=== PATIENT | male | born 1960 | race American Indian/Alaskan Native ===

== ENCOUNTER 2017-04-26 10:20 | Inpatient (IN) | payer BC, MEDICARE ==
[2017-04-26 10:54] LABS: Basophils % (Auto) 1.5 % (0.0-1.8); Hematocrit 43.6 % (35.5-45.6); Hemoglobin 14.5 gm/dl (11.8-15.2); Mean Corpuscular HGB Conc 33 % (32-34); Mean Corpuscular Hemoglobin 29 pg (28-32); Mean Corpuscular Volume 88 fl (84-94); Platelet Count 267 K/mm3 (140-440); Red Blood Count 4.98 M/mm3 (3.65-5.03); Red Cell Distribution Width 14.2 % (13.2-15.2); White Blood Count 5.5 K/mm3 (4.5-11.0)
--- NOTE | 2017-04-26 10:55 | Emergency Department Report ---
Chief Complaint: Chest Pain Stated Complaint: CHEST PAIN - HPI History of Present Illness: pt is a 56 y/o aam with hx of DMII, HTN, CAD, who presents for substernal cp with nv x 2 days intermittent worsening last night, pain leve 4/10 sharp radiating to mid back. there is no sob no dizziness last n/v 1 hr ago, cp 1/10 at this time burning sensation - Exam Vital Signs: Vital Signs 04/26/17 10:30 Temperature 98.8 F Pulse Rate 91 H Respiratory 16 Rate Blood Pressure 139/83 O2 Sat by Pulse 99 Oximetry MSE screening note: Focused history and physical exam performed. Due to findings the following was ordered: ED Disposition for MSE Condition: Stable
[2017-04-26 11:10] LABS: Anion Gap 19 mmol/L; BUN/Creatinine Ratio 18; Blood Urea Nitrogen 9 mg/dL (9-20); Calcium 9.1 mg/dL (8.4-10.2); Carbon Dioxide 23 mmol/L (22-30); Glucose 129 mg/dL (75-100); Potassium 3.9 mmol/L (3.6-5.0); Sodium 138 mmol/L (137-145)
--- NOTE | 2017-04-26 12:34 | Emergency Department Report ---
ED General Adult HPI - General Chief complaint: Chest Pain Stated complaint: CHEST PAIN Time Seen by Provider: 04/26/17 12:28 Source: patient Mode of arrival: Ambulatory Limitations: No Limitations - History of Present Illness Initial comments: Patient is a 56-year-old male past medical history of hypertension who presents with chest pain that has been going on for the last couple days. He states that his chest pain has become more severe today and he states that he vomited today. His chest pain is a 8 out 10 at the pressure type of pain like someone sitting on his chest. Patient also states that he has outlined headache. Patient denies having any shortness of breath or any leg swelling. Severity scale (0 -10): 4 - Related Data Home Medications Medication Instructions Recorded Confirmed Last Taken Insulin Aspart [NovoLOG Flexpen] 2 - 15 unit SQ QAC 02/12/13 11/22/15 05/10/14 Milnacipran HCl [Savella] 50 mg PO DAILY 02/12/13 11/22/15 05/10/14 Rosuvastatin (Nf) [Crestor] 10 mg PO QHS 02/12/13 11/22/15 05/10/14 metFORMIN [Glucophage] 850 mg PO DAILY 02/12/13 11/22/15 05/10/14 Aspirin [Aspirin BABY CHEW TAB] 81 mg PO QDAY 11/22/15 11/22/15 Unknown Insulin Glargine [Lantus] 45 units SQ QHS 11/22/15 11/22/15 Unknown Allergies Allergy/AdvReac Type Severity Reaction Status Date / Time shrimp Allergy Itching Uncoded 05/11/14 09:36 ED Review of Systems ROS: Stated complaint: CHEST PAIN Other details as noted in HPI Constitutional: denies: chills, fever Eyes: denies: eye pain, eye discharge, vision change ENT: denies: ear pain, throat pain Respiratory: denies: cough, shortness of breath, wheezing Cardiovascular: chest pain. denies: palpitations Endocrine: no symptoms reported Gastrointestinal: denies: abdominal pain, nausea, diarrhea Genitourinary: denies: urgency, dysuria Musculoskeletal: denies: back pain, joint swelling, arthralgia Skin: denies: rash, lesions Neurological: denies: headache, weakness, paresthesias Psychiatric: denies: anxiety, depression Hematological/Lymphatic: denies: easy bleeding, easy bruising ED Past Medical Hx - Past Medical History Hx Hypertension: Yes Hx Heart Attack/AMI: Yes (1998 ) Hx Congestive Heart Failure: No Hx Diabetes: Yes Hx Sickle Cell Disease: (SICKLE CELL TRAIT) Hx Arthritis: Yes Hx Asthma: No Hx COPD: No Hx Tuberculosis: No Hx HIV: No Additional medical history: sleep apnea - Surgical History Additional Surgical History: vein surgery to left leg. ankle surgery - achilles tendon - Social History Smoking Status: Former Smoker Substance Use Type: Alcohol - Medications Home Medications: Home Medications Medication Instructions Recorded Confirmed Last Taken Type Insulin Aspart [NovoLOG Flexpen] 2 - 15 unit SQ QAC 02/12/13 11/22/15 05/10/14 History Milnacipran HCl [Savella] 50 mg PO DAILY 02/12/13 11/22/15 05/10/14 History Rosuvastatin (Nf) [Crestor] 10 mg PO QHS 02/12/13 11/22/15 05/10/14 History metFORMIN [Glucophage] 850 mg PO DAILY 02/12/13 11/22/15 05/10/14 History Aspirin [Aspirin BABY CHEW TAB] 81 mg PO QDAY 11/22/15 11/22/15 Unknown History Insulin Glargine [Lantus] 45 units SQ QHS 11/22/15 11/22/15 Unknown History ED Physical Exam - General Limitations: No Limitations General appearance: alert, in no apparent distress - Head Head exam: Present: atraumatic, normocephalic - Eye Eye exam: Present: normal appearance - ENT ENT exam: Present: mucous membranes moist - Neck Neck exam: Present: normal inspection - Respiratory Respiratory exam: Present: normal lung sounds bilaterally. Absent: respiratory distress - Cardiovascular Cardiovascular Exam: Present: regular rate, normal rhythm. Absent: systolic murmur, diastolic murmur, rubs, gallop - GI/Abdominal GI/Abdominal exam: Present: soft, normal bowel sounds - Rectal Rectal exam: Present: deferred - Extremities Exam Extremities exam: Present: normal inspection - Back Exam Back exam: Present: normal inspection - Neurological Exam Neurological exam: Present: alert, oriented X3 - Psychiatric Psychiatric exam: Present: normal affect, normal mood - Skin Skin exam: Present: warm, dry, intact, normal color. Absent: rash ED Course Vital Signs 04/26/17 04/26/17 04/26/17 10:30 11:54 12:00 Temperature 98.8 F Pulse Rate 91 H 84 Respiratory 16 16 Rate Blood Pressure 139/83 143/91 127/85 Blood Pressure [Right] O2 Sat by Pulse 99 95 Oximetry 04/26/17 04/26/17 04/26/17 12:03 12:05 12:15 Temperature 98.1 F Pulse Rate 80 81 Respiratory 30 H 30 H 18 Rate Blood Pressure 127/85 Blood Pressure 143/91 [Right] O2 Sat by Pulse 98 98 96 Oximetry 04/26/17 04/26/17 04/26/17 12:30 12:45 13:00 Temperature Pulse Rate 81 79 80 Respiratory 12 19 17 Rate Blood Pressure 141/93 141/93 123/87 Blood Pressure [Right] O2 Sat by Pulse 96 94 96 Oximetry 04/26/17 04/26/17 04/26/17 13:15 13:30 13:45 Temperature Pulse Rate 80 76 82 Respiratory 19 17 18 Rate Blood Pressure 123/87 123/82 123/82 Blood Pressure [Right] O2 Sat by Pulse 95 94 95 Oximetry 04/26/17 04/26/17 04/26/17 14:00 14:04 14:15 Temperature Pulse Rate 85 85 Respiratory 13 18 17 Rate Blood Pressure 130/89 130/89 Blood Pressure [Right] O2 Sat by Pulse 95 Oximetry 04/26/17 04/26/17 04/26/17 14:30 14:45 15:00 Temperature Pulse Rate 83 80 77 Respiratory 19 17 16 Rate Blood Pressure 123/86 123/86 131/86 Blood Pressure [Right] O2 Sat by Pulse 92 95 92 Oximetry ED Medical Decision Making - Lab Data Result diagrams: 04/26/17 10:39 04/26/17 10:39 Lab Results 04/26/17 04/26/17 04/26/17 Range/Units 10:32 10:39 10:39 WBC 5.5 (4.5-11.0) K/mm3 RBC 4.98 (3.65-5.03) M/mm3 Hgb 14.5 (11.8-15.2) gm/dl Hct 43.6 (35.5-45.6) % MCV 88 (84-94) fl MCH 29 (28-32) pg MCHC 33 (32-34) % RDW 14.2 (13.2-15.2) % Plt Count 267 (140-440) K/mm3 Lymph % (Auto) 27.1 (13.4-35.0) % [place] % (Auto) 10.3 H (0.0-7.3) % Eos % (Auto) 2.0 (0.0-4.3) % Baso % (Auto) 1.5 (0.0-1.8) % Lymph # 1.5 (1.2-5.4) K/mm3 [place] # 0.6 (0.0-0.8) K/mm3 Eos # 0.1 (0.0-0.4) K/mm3 Baso # 0.1 (0.0-0.1) K/mm3 Seg Neutrophils % 59.1 (40.0-70.0) % Seg Neutrophils # 3.3 (1.8-7.7) K/mm3 Sodium 138 (137-145) mmol/L Potassium 3.9 (3.6-5.0) mmol/L Chloride 100.0 (98-107) mmol/L Carbon Dioxide 23 (22-30) mmol/L Anion Gap 19 mmol/L BUN 9 (9-20) mg/dL Creatinine 0.5 L (0.8-1.5) mg/dL Estimated GFR > 60 ml/min BUN/Creatinine Ratio 18 % Glucose 129 H (75-100) mg/dL POC Glucose 111 H (70-105) Calcium 9.1 (8.4-10.2) mg/dL Troponin T < 0.010 (0.00-0.029) ng/mL - EKG Data -: EKG Interpreted by In - EKG Data 04/26/17 14:36 EKG shows normal sinus rhythm no ST segment elevation or T-wave inversion normal axis. Probable left atrial enlargement. - Radiology Data Radiology results: report reviewed, image reviewed Chest x-ray: Shows no acute cardiopulmonary process - Medical Decision Making Chief medical diagnosis: Non-STEMI Differential diagnosis: Pneumonia, GERD, pneumothorax I will get chest x-ray, EKG, CBC, CMP, IV pain medication and 325 mg of baby aspirin next Due to patient's cardiac risk factors of having family history of cardiac disease smoking one pack a week for over 20 years and not regular taking his blood pressure medication or his aspirin. He is at moderate risk and has a hard score of 4. He will need to be admitted for ACS rule out even though his lab work is unremarkable. Discussed plan with patient patient originally planned. I will admit the patient to the hospital service. Dr. Marvin agrees with plan. Critical care attestation.: If time is entered above; I have spent that time in minutes in the direct care of this critically ill patient, excluding procedure time. ED Disposition Clinical Impression: Unstable angina Nausea & vomiting Qualifiers: Vomiting type: unspecified Vomiting Intractability: unspecified Qualified Code( s): R11.2 - Nausea with vomiting, unspecified Disposition: DC09 OP ADMIT IP TO THIS HOSP Is pt being admited?: Yes Does the pt Need Aspirin: No Condition: Stable Instructions: Angina (ED) Referrals: JAMISON JOHNS MD [Primary Care Provider] - 3-5 Days
[2017-04-26] MEDS ORDERED: ZOFRAN IV ONE (12:35)
[2017-04-26] MEDS ORDERED: BABY ASPIRIN PO ONE (12:35)
[2017-04-26] MEDS ORDERED: MORPHINE IV ONE (12:35)
--- NOTE | 2017-04-26 15:27 | XRay Report ---
AP CHEST : 04/26/17 10:20:00 CLINICAL: Chest pain. COMPARISON:02/12/13 FINDINGS: Normal heart and pulmonary vessels. The lungs are slightly underexpanded but clear. No air space disease or pleural effusion. The bones and soft tissues are unremarkable. IMPRESSION: No acute cardiopulmonary process.
--- NOTE | 2017-04-26 17:07 | History and Physical Report ---
History of Present Illness Chief complaint: Chest pain History of present illness: 56m past medical history of hypertension, previous history of DVT diabetes, history of coronary artery disease, history of SD in 1998, at that time he had a cardiac cath that was negative for any large blockages. Denies any history of stents or cardiac surgeries. He presents with 1 day of chest pain. He describes the pain as a pressure in the left side of his chest reveals the right side of his chest. No exacerbating or relieving factors. At worst the pain is a 7-1/2 out of 10 currently he states it is only 3 out of 10. He decided to drive to the hospital and while driving to the hospital he had severe chest pain prompting to pull the car over to the side of the road and vomited out the window. He denies shortness of breath denies fever, denies wheezing, denies sick contacts. States that he follows up with Dr. Archuleta at 7 heart, denies recent stress test or cath. Past History Past Medical History: other (CAD, diabetes, DVT- has completed anticoagulation, hypertension) Past Surgical History: No surgical history Social history: no significant social history Family history: no significant family history Medications and Allergies Allergies Allergy/AdvReac Type Severity Reaction Status Date / Time acetaminophen [From Percocet] AdvReac Itching Verified 04/26/17 20:00 oxycodone [From Percocet] AdvReac Itching Verified 04/26/17 20:00 shrimp Allergy Itching Uncoded 05/11/14 09:36 Home Medications Medication Instructions Recorded Confirmed Last Taken Type metFORMIN [Glucophage] 850 mg PO DAILY 02/12/13 04/26/17 04/26/17 History Aspirin [Aspirin BABY CHEW TAB] 81 mg PO QDAY 11/22/15 04/26/17 04/25/17 History AtorvaSTATin [Lipitor] 20 mg PO QHS 04/26/17 04/26/17 04/25/17 History Gabapentin [Neurontin] 300 mg PO BID 04/26/17 04/26/17 04/26/17 History Insulin Degludec/Liraglutide 30 ml SQ HS 04/26/17 04/26/17 04/25/17 History [Xultophy 100 Unit-3.6MG/ml Pen] Insulin Lispro [Humalog 100 0 units SQ AC 04/26/17 04/26/17 04/25/17 History UNITS/ML Kwikpen] Linaclotide [Linzess] 145 mcg PO QDAY 04/26/17 04/26/17 04/25/17 History Nitroglycerin [Nitrostat] 0.4 mg SL Q5M 04/26/17 04/26/17 04/25/17 History Active Meds: Active Medications Enoxaparin Sodium (Lovenox) 40 mg SUB-Q QDAY@1000 JHON Review of Systems All systems: negative Cardiovascular: chest pain Gastrointestinal: nausea, vomiting Exam - Constitutional Vitals: Temp Pulse Resp BP Pulse Ox 98.1 F 77 16 131/86 92 04/26/17 12:05 04/26/17 15:00 04/26/17 15:00 04/26/17 15:00 04/26/17 15:00 General appearance: Present: no acute distress, well-nourished - EENT Eyes: Present: PERRL ENT: hearing intact, clear oral mucosa - Neck Neck: Present: supple, normal ROM - Respiratory Respiratory effort: normal Respiratory: bilateral: CTA - Cardiovascular Heart Sounds: Present: S1 & S2. Absent: rub, click - Extremities Extremities: pulses symmetrical, No edema Peripheral Pulses: within normal limits - Abdominal General gastrointestinal: Present: soft, non-tender, non-distended, normal bowel sounds Male genitourinary: Present: normal - Integumentary Integumentary: Present: clear, warm, dry - Musculoskeletal Musculoskeletal: gait normal, strength equal bilaterally - Psychiatric Psychiatric: appropriate mood/affect, intact judgment & insight - Neurologic Neurologic: CNII-XII intact, moves all extremities Results - Labs CBC & Chem 7: 04/26/17 10:39 04/26/17 10:39 Labs: Laboratory Last Values WBC 5.5 K/mm3 (4.5-11.0) 04/26/17 10:39 RBC 4.98 M/mm3 (3.65-5.03) 04/26/17 10:39 Hgb 14.5 gm/dl (11.8-15.2) 04/26/17 10:39 Hct 43.6 % (35.5-45.6) 04/26/17 10:39 MCV 88 fl (84-94) 04/26/17 10:39 MCH 29 pg (28-32) 04/26/17 10:39 MCHC 33 % (32-34) 04/26/17 10:39 RDW 14.2 % (13.2-15.2) 04/26/17 10:39 Plt Count 267 K/mm3 (140-440) 04/26/17 10:39 Lymph % (Auto) 27.1 % (13.4-35.0) 04/26/17 10:39 [place] % (Auto) 10.3 % (0.0-7.3) H 04/26/17 10:39 Eos % (Auto) 2.0 % (0.0-4.3) 04/26/17 10:39 Baso % (Auto) 1.5 % (0.0-1.8) 04/26/17 10:39 Lymph # 1.5 K/mm3 (1.2-5.4) 04/26/17 10:39 [place] # 0.6 K/mm3 (0.0-0.8) 04/26/17 10:39 Eos # 0.1 K/mm3 (0.0-0.4) 04/26/17 10:39 Baso # 0.1 K/mm3 (0.0-0.1) 04/26/17 10:39 Seg Neutrophils % 59.1 % (40.0-70.0) 04/26/17 10:39 Seg Neutrophils # 3.3 K/mm3 (1.8-7.7) 04/26/17 10:39 Sodium 138 mmol/L (137-145) 04/26/17 10:39 Potassium 3.9 mmol/L (3.6-5.0) 04/26/17 10:39 Chloride 100.0 mmol/L (98-107) 04/26/17 10:39 Carbon Dioxide 23 mmol/L (22-30) 04/26/17 10:39 Anion Gap 19 mmol/L 04/26/17 10:39 BUN 9 mg/dL (9-20) 04/26/17 10:39 Creatinine 0.5 mg/dL (0.8-1.5) L 04/26/17 10:39 Estimated GFR > 60 ml/min 04/26/17 10:39 BUN/Creatinine Ratio 18 % 04/26/17 10:39 Glucose 129 mg/dL (75-100) H 04/26/17 10:39 POC Glucose 111 (70-105) H 04/26/17 10:32 Calcium 9.1 mg/dL (8.4-10.2) 04/26/17 10:39 Troponin T < 0.010 ng/mL (0.00-0.029) 04/26/17 16:07 - Imaging and Cardiology Chest x-ray: image reviewed (no infiltrate) Assessment and Plan Assessment and plan: 56m with pmh of cad with CP Chest pain. The patient will undergo a LexiScan an echocardiogram in the morning. Patient will also have consultation with his community relations specialist Dr. Archuleta. Diabetes mellitus. insulins while in house Hypertension. continue BP meds .
[2017-04-26] MEDS ORDERED: TYLENOL PO PRN (17:11)
[2017-04-26] MEDS ORDERED: DULCOLAX PR PRN (17:11)
[2017-04-26] MEDS ORDERED: SODIUM CHLORIDE FLUSH SYRINGE 10 ML IV PRN (17:11)
[2017-04-26] MEDS ORDERED: MILK OF MAGNESIA PO PRN (17:11)
[2017-04-26] MEDS ORDERED: PERCOCET 5/325 PO PRN (17:11)
[2017-04-26] MEDS ORDERED: MORPHINE IV PRN (17:11)
[2017-04-26] MEDS ORDERED: ZOFRAN IV PRN (17:11)
[2017-04-26] MEDS: NITROSTAT SL SCH (19:57)
[2017-04-26] MEDS ORDERED: NEURONTIN PO SCH (22:00)
[2017-04-27] MEDS: NITROSTAT SL SCH (02:44)
[2017-04-27 09:03] VITALS: BP 120/82
--- NOTE | 2017-04-27 09:11 | Consultation ---
History of Present Illness Consult date: 04/27/17 Requesting physician: TRUDI COHEN Consult reason: chest pain History of present illness: The pt is a 56 YO male with a past medical history significant for HLP and DM. He has been seen in our office in the past by Dr. Archuleta. He presented with c/o chest pain since Wednesday night. He describes the chest pain as a midsternal and sometimes left sided nonexertional, nonradiating, intermittent "shocking" pain and pressure which was associated with diaphoresis, nausea and vomiting. He denies any chest pain prior to Wednesday. He denies any SOB, palpitations, dizziness or syncope. He denies any clear aggravating or alleviating factors. On evaluation, he denies any chest pain and is awaiting treadmill MPI stress test. Pt underwent LHC 10/[address] Oni Jaimes which showed no evidence of significant CAD, EF 55-60%, no evidence of or MR, mild elevated LVEDP. Treadmill stress test 02/2014 showed good exercise performance, negative for ischemia or arrhythmias. Echo 02/2014 showed EF 55-60%, mild AR, AV mildly thickened and calcified, trace TR. Past History Past Medical History: diabetes, hyperlipidemia Past Surgical History: No surgical history Social history: no significant social history Family history: no significant family history Medications and Allergies Allergies Allergy/AdvReac Type Severity Reaction Status Date / Time oxycodone [From Percocet] AdvReac Itching Verified 04/26/17 20:00 shrimp Allergy Itching Uncoded 05/11/14 09:36 Home Medications Medication Instructions Recorded Confirmed Last Taken Type metFORMIN [Glucophage] 850 mg PO DAILY 02/12/13 04/26/17 04/26/17 History Aspirin [Aspirin BABY CHEW TAB] 81 mg PO QDAY 11/22/15 04/26/17 04/25/17 History AtorvaSTATin [Lipitor] 20 mg PO QHS 04/26/17 04/26/17 04/25/17 History Gabapentin [Neurontin] 300 mg PO BID 04/26/17 04/26/17 04/26/17 History Insulin Degludec/Liraglutide 30 ml SQ HS 04/26/17 04/26/17 04/25/17 History [Xultophy 100 Unit-3.6MG/ml Pen] Insulin Lispro [Humalog 100 0 units SQ AC 04/26/17 04/26/17 04/25/17 History UNITS/ML Kwikpen] Linaclotide [Linzess] 145 mcg PO QDAY 04/26/17 04/26/17 04/25/17 History Nitroglycerin [Nitrostat] 0.4 mg SL Q5M 04/26/17 04/26/17 04/25/17 History Active Meds: Active Medications Acetaminophen (Tylenol) 650 mg PO Q4H PRN PRN Reason: Pain MILD(1-3)/Fever >100.5/LEVIN Last Admin: 04/26/17 20:05 Dose: 650 mg Aspirin (Baby Aspirin) 81 mg PO QDAY [facility] [place] Atorvastatin Calcium (Lipitor) 20 mg PO QHS [facility] Last Admin: 04/26/17 22:12 Dose: 20 mg Bisacodyl (Dulcolax) 10 mg VT QDAY PRN PRN Reason: Constipation unrelieved by [facility] [place] Enoxaparin Sodium (Lovenox) 40 mg SUB-Q QDAY@1000 JHON Gabapentin (Neurontin) 300 mg PO BID [facility] [place] [place] Last Admin: 04/26/17 22:12 Dose: 300 mg Magnesium Hydroxide (Milk Of Magnesia) 30 ml PO Q4H PRN PRN Reason: Constipation Miscellaneous Medication (Linaclotide [Linzess]) 145 mcg PO QDAY [facility] [place] Morphine Sulfate (Morphine) 4 mg IV Q4H PRN PRN Reason: Pain , Severe (7-10) Nitroglycerin (Nitrostat) 0.4 mg SL Q5M [facility] [place] Last Admin: 04/27/17 02:44 Dose: Not Given Ondansetron HCl (Zofran) 4 mg IV Q8H PRN PRN Reason: N/V unrelieved by Reglan Oxycodone/Acetaminophen (Percocet 5/325) 1 tab PO Q6H PRN PRN Reason: Pain, Moderate (4-6) Last Admin: 04/26/17 19:58 Dose: 1 tab Sodium Chloride (Sodium Chloride Flush Syringe 10 Ml) 10 ml IV PRN PRN PRN Reason: LINE FLUSH Review of Systems Constitutional: no weight loss, no weight gain, no fever, no chills, no sweats Ears, nose, mouth and throat: no ear pain, no nose pain, no sinus pressure, no sinus pain Cardiovascular: chest pain, no orthopnea, no palpitations, no rapid/irregular heart beat, no edema, no syncope, no lightheadedness, no shortness of breath, no dyspnea on exertion Respiratory: no cough, no shortness of breath, no dyspnea on exertion, no congestion, no wheezing, no pain on inspiration Gastrointestinal: nausea, vomiting, no abdominal pain, no diarrhea, no constipation, no change in bowel habits Genitourinary Male: no dysuria, no hematuria, no flank pain, no discharge, no urinary frequency, no urinary hesitancy Musculoskeletal: no neck stiffness, no neck pain, no shooting arm pain, no arm numbness/tingling, no low back pain, no shooting leg pain, no leg numbness/ tingling, no redness of joints Integumentary: no rash, no pruritis, no redness, no sores, no wounds Neurological: no head injury, no paralysis, no weakness, no parathesias, no numbness, no tingling, no seizures, no syncope Psychiatric: no anxiety Endocrine: no cold intolerance, no heat intolerance Hematologic/Lymphatic: no easy bruising, no easy bleeding, no lymphadenopathy Allergic/Immunologic: no urticaria, no wheezing, no persistent infections Physical Examination Vital Signs Temp Pulse Resp BP Pulse Ox 98.8 F 91 H 16 139/83 99 04/26/17 10:30 04/26/17 10:30 04/26/17 10:30 04/26/17 10:30 04/26/17 10:30 General appearance: no acute distress HEENT: Positive: PERRL, Normocephaly, Mucus Membranes Moist Neck: Positive: neck supple, trachea midline Cardiac: Positive: Reg Rate and Rhythm, S1/S2 Lungs: Positive: clear to auscultation Neuro: Positive: Grossly Intact, Cranial Nerve 2-12 Intact Abdomen: Positive: Unremarkable, Soft, Active Bowel Sounds. Negative: Tender Skin: Positive: Clear. Negative: Rash, Wound Musculoskeletal: No Fluid Collection, No Pain, Normal Range of Motion Extremities: Absent: edema Results 04/26/17 10:39 04/26/17 10:39 CBC 04/26/17 Range/Units 10:39 WBC 5.5 (4.5-11.0) K/mm3 RBC 4.98 (3.65-5.03) M/mm3 Hgb 14.5 (11.8-15.2) gm/dl Hct 43.6 (35.5-45.6) % Plt Count 267 (140-440) K/mm3 Lymph # 1.5 (1.2-5.4) K/mm3 [place] # 0.6 (0.0-0.8) K/mm3 Eos # 0.1 (0.0-0.4) K/mm3 Baso # 0.1 (0.0-0.1) K/mm3 Comprehensive Metabolic Panel 04/26/17 Range/Units 10:39 Sodium 138 (137-145) mmol/L Potassium 3.9 (3.6-5.0) mmol/L Chloride 100.0 (98-107) mmol/L Carbon Dioxide 23 (22-30) mmol/L BUN 9 (9-20) mg/dL Creatinine 0.5 L (0.8-1.5) mg/dL Glucose 129 H (75-100) mg/dL Calcium 9.1 (8.4-10.2) mg/dL - Imaging and Cardiology Echo: pending, report reviewed ( showed EF 55-60%, mild AR, AV mildly thickened and calcified, trace TR) Cardiac cath: report reviewed (10/[address] Oni Jaimes which showed no evidence of significant CAD, EF 55-60%, no evidence of or MR, mild elevated LVEDP) EKG: report reviewed, image reviewed EKG interpretations - Telemetry EKG Rhythm: Sinus Rhythm - EKG Sinus rhythms and dysrhythmias: sinus rhythm Assessment and Plan Assessment: Chest pain, atypical - ECG with NAF; Ynes negative for AMI; currently resolved HLP DM Plan: Proceed with treadmill MPI stress test. Await findings. F/u echo. Assessment and plan reviewed with pt at bedside. The patient has been seen in conjunction with Dr. Oni Jaimes who agrees with the assessment and plan of care.
[2017-04-27] MEDS ORDERED: LOVENOX SUB-Q SCH ×2 (10:00)
[2017-04-27] MEDS ORDERED: NON-FORMULARY (Linaclotide [Linzess] 145 MCG) PO SCH (10:00)
[2017-04-27] MEDS ORDERED: BABY ASPIRIN PO SCH (10:00)
--- NOTE | 2017-04-27 10:59 | Event Note ---
Date: 04/27/17 Pt s/p treadmill MPI stress test this AM which was negative for ischemia, normal EF. Currently stable cardiac status. Pt may discharge home from cardiology standpoint. Follow-up in our [place] office with Dr. Oni Jaimes on 05/11/2017 @ 3:15PM. Ajay LEWIS NP / DR. Oni JAIMES
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
--- NOTE | 2017-04-28 | Treadmill Report ---
NUCLEAR PERFUSION SCAN REFERRING PHYSICIAN: Hospitalist service. PROTOCOL: The patient was brought to the stress lab in a postoperative state, given 10 mCi of technetium 99m at rest. The patient underwent rest imaging. The patient underwent treadmill stress test per standard protocol. At peak stress, the patient was given 28 mCi of technetium 99m. Shortly thereafter, the patient underwent stress imaging. Raw imaging reveals mild GI artifact. No significant motion artifact. SPECT imaging examined carefully in horizontal long axis, vertical long axis, short axis views. There is normal homogenous uptake radioisotope in all reported segments. No evidence of a significant fixed or reversible perfusion defects suggestive of prior infarction or ischemia. Gated wall motion reveals normal systolic thickening, calculated ejection fraction of 62%. No TID. CONCLUSIONS: 1. Normal myocardial perfusion scan without evidence of active ischemia or prior infarction. 2. Normal left ventricular systolic performance without evidence of transient ischemic dilatation or stress-induced segmental wall motion abnormalities. JOB# [id number] SBSujata/FREDRICK
== END 2017-04-27 11:59 | disposition home or self-care (01) | DRG 303 ==
LOC: ED 10:20 → 4A 16:14
PROVIDERS: ADMIT Internal Medicine; ATTEND Internal Medicine
PROC: 5A09357 Assistance with Respiratory Ventilation, Less than 24 Consecutive Hours, Continuous Positive Airway Pressure (ICD-10-PCS; principal; 2017-04-27)
DX: I25.110 Atherosclerotic heart disease of native coronary artery with unstable angina pectoris (principal); E11.9 Type 2 diabetes mellitus without complications; I10 Essential (primary) hypertension; M19.90 Unspecified osteoarthritis, unspecified site; G47.30 Sleep apnea, unspecified; E78.5 Hyperlipidemia, unspecified; Z79.82 Long term (current) use of aspirin; Z79.4 Long term (current) use of insulin; Z79.899 Other long term (current) drug therapy; Z91.018 Allergy to other foods; I25.2 Old myocardial infarction; Z87.891 Personal history of nicotine dependence; Z88.8 Allergy status to other drugs, medicaments and biological substances
CPT/HCPCS: 36415; 71010; 78452; 80048; 82962; 84484; 85025; 93005; 93010; 93017; 93306; 94660; 96374; 96375; A9270-GY; A9502; J2270; J2405

== ENCOUNTER 2017-11-09 16:57 | Emergency (ER) | payer MEDICARE, OTHER ==
[2017-11-09] MEDS ORDERED: MOTRIN PO ONE (18:15)
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
[2017-11-09 20:52] VITALS: BP 112/73
== END 2017-11-09 20:52 | disposition home or self-care (01) ==
LOC: ED 16:57
DX: M62.838 Other muscle spasm (principal); M54.2 Cervicalgia; I10 Essential (primary) hypertension; I25.2 Old myocardial infarction; E11.9 Type 2 diabetes mellitus without complications; M19.90 Unspecified osteoarthritis, unspecified site; Z79.82 Long term (current) use of aspirin; Z91.013 Allergy to seafood; Z79.4 Long term (current) use of insulin; V43.52XA Car driver injured in collision with other type car in traffic accident, initial encounter; Y93.89 Activity, other specified; Y99.8 Other external cause status; Y92.488 Other paved roadways as the place of occurrence of the external cause
CPT/HCPCS: 72040